=== PATIENT | male | born 1945 | race Two or more races ===

== ENCOUNTER 2017-05-18 14:09 | Observation (INO) | payer MEDICARE, OTHER ==
[~2017-05-18] VITALS: Ht 185.4 cm; Wt 101.2 kg
[2017-05-18 15:48] VITALS: BP 147/78; PULSE 70; RESP 23; O2SAT 96
[2017-05-18] MEDS ORDERED: Ondansetron 2 mg/mL 2 mL Inj IVPUSH PRN (16:20)
[2017-05-18] MEDS ORDERED: Alum-Mag Hydrox-Simeth 30 mL Suspension PO PRN (16:20)
[2017-05-18] MEDS ORDERED: Polyethylene Glycol (PEG) 17 Gm Powder PO PRN (16:20)
[2017-05-18] MEDS ORDERED: LIP40 PO (16:28)
[2017-05-18] MEDS ORDERED: HYDR25TA4 PO (16:28)
[2017-05-18] MEDS ORDERED: ASPI-973 PO (16:28)
[2017-05-18] MEDS ORDERED: ALPR1TAB2 PO (16:28)
[2017-05-18] MEDS ORDERED: LISI-567 PO (16:28)
[2017-05-18] MEDS ORDERED: LORA10CA PO (16:28)
[2017-05-18] MEDS ORDERED: Heparin 5,000 Unit/mL Inj SUBQ SCH (16:30)
--- NOTE | 2017-05-18 16:33 | PCM.HPMED ---
Subjective Date of Service May 18, 2017 Primary Provider: Admitting Physician: Bull Wei MD Primary Care Physician: Nopcp Attending Physician: Bull Wei MD Admit Status: Direct Admit, 23-Hour Observation, [facility] Telemetry Chief Complaint: Chest pain History of Present Illness: This is a pleasant 71-year-old woman who was golfing yesterday when he developed acute chest pain. He also developed a feeling of being lightheaded and had a lot of dyspepsia. He drove home and had ongoing feeling of chest pressure with some radiation to neck as well as I am going burping and feeling lightheaded. He called 911 and took 3 aspirin. Medics found him to be in atrial fibrillation with rapid ventricular response. He had no palpitations or fluttering. He denies a history of CAD, MO, chest pain at rest or with exertion , or leg swelling. No history of pleuritic chest pain. No hemoptysis. He denies a family history of CAD. He was initially admitted to [facility] At that point he was placed on a Cardizem drip. He apparently at some point had a spontaneous conversion to sinus rhythm today. He did have elevated troponin. [facility] did not have access to stress testing or echo. The requested transfer here for these services. He denies recent URI symptoms, he does have chronic allergies and allergic rhinitis. Review of Systems: He denies fevers or chills. No cough. No orthopnea. No blood per rectum or melena constipation. No difficulty urinating. All else reviewed and otherwise unremarkable except as noted in history of present illness. Home Medications Chlorothiazide 25 daily, lisinopril 20 daily, Lipitor 40 mg daily, Xanax 1 mg once a day, aspirin 81 mg daily, loratadine 10 mg daily PMH Essential hypertension Hyperlipidemia Allergic rhinitis Surgical History Left testicular operation when he was a child, possibly for a hydrocele. Left eye foreign body removal as a child. Family History No history of CAD Social History Occupation: Works as a camp Hx Alcohol Use: No Hx Substance Use: No Hx Tobacco Use: No Living Arrangement: with Family Exam Exam Oriented 3. No distress. Fluent speech. Normal affect. Normal skull. Normal nose and ears. Anicteric sclera, symmetric pupils Oropharynx is unremarkable, no facial droop. Neck is supple, normal thyroid. No adenopathy. Lungs are clear, normal effort rate. Heart is regular without murmur gallop or rub. Abdomen soft, nondistended or tender. Extremities are free of pedal edema. Good radial and pedal pulses. Skin is free of rash, lesions. No petechiae or ecchymosis. Joints are grossly normal. Cranial nerves are grossly normal. Motor strength is normal in all extremities. Normal muscular tone. Lab and Diagnostics Labs All initial studies pending Assessment & Plan 1. Paroxysmal atrial fibrillation with rapid ventricular response. This has resolved. The patient will be monitored on telemetry. We will check TSH. 2. Elevated troponin in context of tachycardia, present on admission and active. We will trend troponins. Anticipate 2-D echo and stress testing tomorrow. 3. Essential hypertension, present on admission and stable. Resume usual medications. 4. Hyperlipidemia, present on admission and stable. Resume usual medications. Patient has 4 resuscitation He is admitted observation status with an estimated length of stay of one night. Pain Evaluation: Adequate Pain Control Resuscitation Status: CPR: Attempt Resuscitation Time spent 40 minutes Bull Wei MD May 18, 2017 16:33
[2017-05-18 17:17] VITALS: PULSE 60
[2017-05-18] MEDS: Sodium Chloride LOK Flush 10 mL Syringe IVFLUSH SCH (17:24)
[2017-05-18] MEDS ORDERED: Heparin Protocol Boluses IVPUSH PRN (18:15)
[2017-05-18] MEDS ORDERED: Heparin 25K Unit/500mL 0.45 NS 25,000 UNIT in IV Premix 1 EACH IV SCH (18:15)
[2017-05-18] MEDS: MeTOProlol XL 25 mg ER24 Tablet PO SCH (18:42)
--- NOTE | 2017-05-18 19:06 | NUR ---
RAGHAV explained and signed. Copy of RAGHAV and Medicare self administered medication information given to pt.
--- NOTE | 2017-05-18 19:06 | CONS ---
[address] [address] CONSULTATION REPORT PATIENT: PHUONG KEITH : 1945 MR#: [id number] ADMIT: 05/18/2017 JOB ID: [id number] DATE OF SERVICE: 05/18/2017 REASON FOR CARDIOLOGY CONSULT: For the evaluation of atrial fibrillation and abnormal troponin. CHIEF COMPLAINT: Chest pain. Palpitations. PRESENT HISTORY: This 71-year-old, pleasant male who has a history of essential hypertension, hyperlipidemia, anxiety, allergic rhinitis, was playing golf yesterday. When he was trying to play hole number four, he developed retrosternal pressure-type discomfort which was pretty intense. It radiated to the left jaw. He felt palpitations. He felt that his heart was beating irregular. He went home and took three aspirin but did not feel better. Then, he got checked at the [facility] and found to be in atrial fibrillation with fast ventricular rate. Hence, he was taken to the [facility], where he got treated. He was started on Cardizem drip as well. At some point, he converted to sinus rhythm. His troponin was abnormal. His baseline EKG was abnormal. Hence, the patient was transferred to our facility for further cardiac workup. At present, he is lying down flat. He is not having any active chest pain or palpitation. The patient denies any previous history of myocardial infarction, rheumatic heart disease or congenital heart disease or DVT or pulmonary embolism or significant arrhythmias. The patient told me about 18 years ago he had cardiac workup which was due to the presence of a murmur. However, no significant abnormality was found. The patient denies any fever, cough expectoration, bleeding or stroke-like symptoms. Denies any known history of sleep apnea. However, he has some symptoms which suggest that he may have sleep apnea. No history of excessive alcohol abuse or caffeine intake or drug abuse or history of diabetes mellitus. No known family history of atrial fibrillation. PAST MEDICAL HISTORY: Positive for essential hypertension, hyperlipidemia, anxiety, allergic rhinitis. PAST SURGICAL HISTORY: Left eye foreign body removal as a child, left testicular operation for hydrocele. PAST SURGICAL HISTORY: As stated above. ALLERGIES: Denies any significant allergy. FAMILY HISTORY: No family history of CAD. SOCIAL HISTORY: Denies any excessive tobacco abuse or alcohol abuse. MEDICATIONS: At home, he was takin. Xanax 1 mg daily. 2. Lipitor 20 mg daily. 3. Hydrochlorothiazide 25 mg daily. 4. Lisinopril 20 mg daily. 5. Aspirin 81 mg daily. REVIEW OF SYSTEMS: Ten-point review of systems were obtained. They are negative except as stated above. PHYSICAL EXAMINATION: Blood pressure 147/78, heart rate 70, respiratory rate 23, oxygen saturation on room air 96%. HEENT: No significant anemia, jaundice. Neck: No apparent JVP or carotid bruit. Chest: No obvious crepitation, rhonchi. CVS: S1, S2 normal. No S3, no S4. I do not appreciate any significant murmur. Abdomen: Obese, no obvious pulsatile mass felt. No obvious hepatosplenomegaly. Extremities: No significant pedal edema. Vascular: No evidence of critical limb ischemia. 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 No obvious motor or sensory deficit. LABS: At [facility] yesterday revealed WBC 7.7, hemoglobin 14, platelets 265. Sodium 136, potassium 3.9, BUN 24, creatinine 1.1. Normal AST, ALT. Initial troponin was less than 0.04. Lipase 26. Troponin in our facility today, 0.57. EKG yesterday at 3:51 p.m. revealed atrial fibrillation with fast ventricular rate about 117, with diffuse T-wave inversion including anterior leads, as well as inferior leads and lateral leads. EKG in our facility reveals sinus rhythm with KS interval 212 msec, suggestive of first-degree AV block, diffuse T-wave inversion including anterior inferior leads as well as lateral leads. QTc 450 msec. There is early transition. ASSESSMENT AND PLAN: Abnormal troponin with chest pain suggestive of angina in the setting of atrial fibrillation with fast ventricular rate with underlying essential hypertension, hyperlipidemia. At present, patient is in sinus rhythm. He is not having any chest pain. Abnormal troponin could be due to demand ischemia. However, patient has risk factors for underlying coronary artery disease as well. I suspect that he may have sleep apnea which can trigger atrial fibrillation. At present, no obvious evidence of infection. No history of excessive alcohol intake or caffeine intake or other triggers for atrial fibrillation. The patient has diffuse T-wave inversion. which may be due to hypertensive heart disease. However, ischemia cannot be ruled out, especially global ischemia. At present, he appears compensated. He is not in heart failure. No evidence of critical limb ischemia. His CHADS2 vascular score is 2. Hence, he will need anticoagulation. I will start him on regular heparin. I will treat him for possible demand ischemia as well. Will continue aspirin, and start IV heparin as per cardiac protocol and will start beta lynn and continue high-intensity statin. Will get echocardiogram in the morning. If on echocardiogram there is no obvious wall motion abnormalities and LV function is preserved, then we will recommend perfusion study for CAD diagnosis and risk stratification. However, if 2D echo suggests LV dysfunction or focal wall motion abnormalities suggestive of coronary artery disease, then will recommend consideration of left heart catheterization. Discussed the plan with the patient. He agreed and concur. Benefits and risks of above-mentioned procedure discussed. Further plan will be based on the result of above-mentioned diagnostic tests. Thanks for the cardiology consult. Total time spent today reviewing his records from [facility] is about 70 minutes.
--- NOTE | 2017-05-18 19:32 | NUR ---
Admit from [facility] pt. brought from [facility] this afternoon; vss; A&Ox3; tele sinus 60-70's; denies cp or pressure. Admit/med rec completed. Pt. to have echocardiogram in AM; depending on results, per cert occupational therapy asst, pt. will either have stress test or heart cath. Heparin gtt initiated per cardiac protocol per md orders.
[2017-05-18 20:00] VITALS: PULSE 73
[2017-05-18 21:14] VITALS: BP 143/75; PULSE 59; RESP 18; O2SAT 96
[2017-05-18 23:04] VITALS: BP 131/71; PULSE 60; RESP 18; O2SAT 96
[2017-05-19] MEDS: Sodium Chloride LOK Flush 10 mL Syringe IVFLUSH SCH ×2 (02:09→07:31)
[2017-05-19 02:15] VITALS: BP 158/82; PULSE 78; RESP 18; O2SAT 97
--- NOTE | 2017-05-19 06:44 | NUR ---
cardiac/anxiety Pt denied chest pain through out shift. Awaiting stress test this AM and has been NPO since midnight. Pt exhibits signs of anxiety: restless in bed pt requires frequent reassurance.
[2017-05-19] MEDS: MeTOProlol XL 25 mg ER24 Tablet PO SCH ×2 (07:31→14:00)
[2017-05-19 07:41] VITALS: BP 158/80; PULSE 79; RESP 18; O2SAT 95
[2017-05-19] MEDS ORDERED: LORazepam 1 mg Tablet PO ONE (08:45)
--- NOTE | 2017-05-19 09:10 | PCM.PNMED ---
Subjective Date of Service May 19, 2017 Subjective Patient is done well overnight. He is somewhat anxious. Denies any palpitations, no recurrent atrial fibrillation. No chest pain, no dyspnea. He is hungry. No abdominal pain or nausea. No diarrhea. No problems with urination. No overnight events Exam Vital Signs Vital Sign - Last Date Time Temp Pulse Resp B/P Pulse Ox O2 Delivery O2 Flow Rate FiO2 05/19/17 07:41 36.8 79 18 158/80 95 Room Air Intake and Output 05/18/17 05/18/17 05/19/17 Cumulative From/Thru 15:00 23:00 07:00 05/18/17 16:08 - 05/19/17 05:52 Intake Total 400 ml 569 ml 969 ml Output Total 225 ml 500 ml 725 ml Balance 175 ml 69 ml 244 ml Intake Oral 400 ml 400 ml 800 ml IV Total 169 ml 169 ml Output Urine Total 225 ml 500 ml 725 ml # Bowel Movements 2 2 Exam Alert and oriented -3, no distress. Fluent speech Anicteric sclera. Lungs are clear with normal rate and effort Heart is regular without murmur gallop or rub Abdomen soft nontender, flat Extremities are free of edema. Skin is free of rash or lesions. IVs and Medications Medications Reviewed: Medications were reviewed in detail Assessment & Plan 1. Paroxysmal atrial fibrillation with rapid ventricular response. This has resolved. The patient continues to be in sinus rhythm. Echo this morning with a risk stratification started contingent on echo results. 2. Elevated troponin in context of tachycardia, present on admission and active. We will trend troponins, a.m. troponin is pending. We will discuss stress test versus angiogram after 2-D echo with cardiology. 3. Essential hypertension, present on admission and stable. Resume usual medications. This is stable. This is stable. 4. Hyperlipidemia, present on admission and stable. Resume usual medications. Patient is full resuscitation He is admitted observation status with an estimated length of stay of one night. Resuscitation Status: CPR: Attempt Resuscitation Bull Wei MD May 19, 2017 09:10
[2017-05-19 09:20] LABS: BASOPHILS % (AUTO) 0.6 % (0-3); EOSINOPHILS % (AUTO) 1.1 % (0-5); MONOCYTES % (AUTO) 9.8 % (4-12); Mean Corpuscular Hemoglobin 31.1 pg (27.0-35.0); Mean Corpuscular Volume 88.9 fL (81-100); NEUTROPHILS % (AUTO) 59.3 % (40-74); Platelet Count 267 bil/L (150-400)
[2017-05-19 10:49] VITALS: PULSE 73
--- NOTE | 2017-05-19 11:01 | DRSVH ---
[facility] [address] [place] [address] Echocardiogram Report Name: PHUONG KEITH te: 05/19/2017 Height: 73 in Hospital Exam Location: [facility] Weight: 223 lb Gender: Male BSA: 2.3 m2 : 1945 Age: 71 yrs BP: 158/80 mmHg Reason For Study: Chest pain Ordering Physician: HOSPITALIST SVerformed By: Yaron Mcgowan Referring Physician: ANNIKA RUIZ Interpretation Summary The left ventricle is normal in size. The left ventricle is hyperdynamic. There is mild concentric left ventricular hypertrophy. There is moderate proximal septal thickening noted. There is no echo evidence for significant left ventricular outflow tract obstruction. The ejection fraction is estimated to be 70-75%. The right ventricle is normal size. The right ventricular systolic function is normal. There is mild mitral regurgitation. Procedure: A two-dimensional transthoracic echocardiogram with color flow and Doppler was performed. The study quality was technically adequate. A contrast injection of Definity was performed to improve assessment of LV function. There is no prior echocardiogram noted for this patient. The patient was in normal sinus rhythm during the exam. Left Ventricle: The left ventricle is normal in size. There is mild concentric left ventricular hypertrophy. There is moderate proximal septal thickening noted. There is no echo evidence for significant left ventricular outflow tract obstruction. The ejection fraction is estimated to be 70-75%. The left ventricle is hyperdynamic. There are no focal wall motion abnormalities. E/A is normal. E/E' slightly elevated. Right Ventricle: The right ventricle is normal size. The right ventricular systolic function is normal. Atria: Both atria are normal in size. The interatrial septum is intact with no evidence for an atrial septal defect. Mitral Valve: There is mild mitral annular calcification. The mitral valve leaflets appear thickened, but open well. There is mild mitral regurgitation. Aortic Valve: The aortic valve is trileaflet. The aortic valve opens well. The aortic valve is slightly calcified. There is no aortic valve stenosis. No aortic regurgitation is present. Tricuspid Valve: The tricuspid valve is normal. Pulmonary artery pressures cannot be estimated because of the lack of a measurable TR jet velocity. There is trace tricuspid regurgitation. Pulmonic Valve: The pulmonic valve is not well seen, but is grossly normal. There is trace pulmonic regurgitation. Great Vessels: The aortic root is normal size. The ascending aorta is mildly enlarged. The pulmonary artery is normal size. The inferior vena cava was not well visualized. Pericardium/ Pleura There is no pericardial effusion. There is an anterior echo-free space consistent with a fat pad. There is no pleural effusion. MMode/2D Measurements & Calculations LVIDd: 4.2 cm RA long axis LVOT diam: 2.3 cm LVIDs: 2.4 cm LA A2 area: 19.2 cm Ao root diam FS: 42.4 % LA A4 area: 19.4 cm RA area EPSS: 0.00 cm LA length (vol) asc Aorta Diam IVSd: 1.3 cm : 15.1 cm LVPWd: 1.4 cm LA vol: 55.7 ml RA vol Ao Arch Diam (Prox LA vol index : 38.2 ml Trans): 3.1 cm RA : 24.7 ml/m2 : 17.0 mm2 LV rubio. diameter/BSA LV sys. diameter/BSA RVD1 (basal) TAPSE: 2.2 cm (cm/m^2): 1.9 (cm/m^2): 1.1 Doppler Measurements & Calculations Ao V2 max: 135.1 cm/secMV E max humberto MV E/A: 1.2 PA V2 max Ao max P.3 mmHg : 92.8 cm/sec Med Peak E' Humberto : 81.9 cm/sec Ao mean P.1 mmHg MV A max humberto PA mean PG LVOT Max Humberto : 79.0 cm/sec E/E' med: 21.5 : 1.5 mmHg : 118.8 cm/sec Lat Peak E' Humberto AVANI(I,D): 4.0 cm sev ratio: 1.0 E/E' lat: 12.4 E/e' average MV dec time: 0.17 sec Ao V2 mean LV V1 max PG PA V2 mean : 95.8 cm/sec : 58.4 cm/sec Ao V2 VTI: 27.2 cmLV V1 VTI: 27.3 cm PA pr(Accel) AVANI(V,D): 3.5 cm2 : 29.2 mmHg AVANI indexed to BSA (cm^2/m^2): 1.8 Reading Physician:SYD
[2017-05-19 11:03] LABS: TROPONIN T 0.029 ug/L (0.0-0.011)
--- NOTE | 2017-05-19 11:12 | NUR ---
Social Work: Initial Assessment Data: See initial assessment. Patient is a 71 year old male who was admitted on 05/18/17 for PAF & elevated Troponin per H&P. Patient's insurance is Medicare and [employer]. Patient's PCP is Dr. Cheng Juares. EMR reviewed. SW met with patient to discuss discharge planning. SW role explained. Patient informed SW that he lives in [place] with his . Patient considers his to be his main support person. Patient confirms that his is his DPOA and that AD have been completed. Patient states that he is I with all ADLs and care needs. Patient confirms that he does drive via POV. Patient denies any hx of home health services or SNF. Patient denies having snf care insurance but confirms having VA benefits. Upon discharge, patient states that his will transport him home. SW provided patient with a discharge planning checklist booklet and encouraged to call with any questions/concerns. Phone number provided. SW will continue to follow. Assessment: Patient will discharge home with spouse. Plan: Patient will discharge home with spouse when medically stable. Transportation will be provided by spouse via POV. SW will continue to follow for needs. TIAGO Amaya Addendum: 05/19/17 at 1123 by TOAN SANTOS Amended: Links added.
[2017-05-19 11:41] VITALS: BP 137/76; PULSE 78; RESP 20; O2SAT 96
--- NOTE | 2017-05-19 11:55 | NUR ---
anxiety, npo for stress test/cath pt. anxious this am regarding tests/diagnoses. MD aware; lorazepam 1mg po given this am per md orders. Pt. had echo this am; carpenter foreman called and ok'd stress test to be done today; message left with nuc med. Denies cp, pressure, or any fluttering/palpitations; tele remains sinus rhythm.
[2017-05-19 13:20] VITALS: BP 86/47; PULSE 82
[2017-05-19 13:55] VITALS: BP 137/80; PULSE 78; RESP 22; O2SAT 96
--- NOTE | 2017-05-19 14:36 | PCM.DIMED ---
Discharge Instructions Date of Service May 19, 2017 Dates of Hospitalization May 18, 2017 at 15:41 Discharge Diagnosis Discharge Diagnosis 1. Paroxysmal atrial fibrillation with rapid ventricular response. Resolved. 2. Elevated troponin in context of tachycardia, with normal stress test. 3. Essential hypertension, stable 4. Hyperlipidemia, stable Diet Discharge Diet: Heart Healthy Activity Discharge Activity: No restrictions Call your provider Call your provider for: Shortness of breath, Chest pain Patient Instructions Follow-up Provider: Cheng Juares MD Follow-up with PCP in: 1 week Provider: Harry Rodríguez MD Follow-up in: 6 weeks Bull Wei MD May 19, 2017 14:36
[2017-05-19] MEDS ORDERED: APIX5TAB PO (14:38)
[2017-05-19] MEDS ORDERED: METO25TA99 PO (14:38)
--- NOTE | 2017-05-19 15:23 | DRSVH ---
PROCEDURE: EITHER REST OR STRESS ONLY. Pharmacological stress myocardial perfusion SPECT with gated imaging and ejection fraction. RADIOPHARMACEUTICAL: 20.6 mCi of Tc-99m tetrofosmin intravenously at peak pharmacologic stress. INDICATIONS: CHEST PAIN. TECHNIQUE: Radiopharmaceutical was injected at peak stress test. SPECT images were obtained. SPECT myocardial perfusion images were displayed in short axis, horizontal long axis, and vertical long ax is views. Gated images were reviewed using [employer] software. COMPARISON: None. CARDIAC STRESS: A pharmacologic stress test was performed under the supervision of attending staff u sing an infusion of Lexiscan as per protocol. Hemodynamic Data: There is normal blood pressure and heart rate response to pharmacologic stress. Symptoms: The patient felt dyspnea, mild nausea and abdominal cramps during Lexiscan infusion. Aminophylline: No aminophylline was given. EKG: Baseline rhythm was sinus with diffuse T-wave inversions and slight ST depression with possible LVH. During stress, there was a little bit more pronouncement of the T-wave inversion and ST change s. There were no significant arrhythmias. FINDINGS: 1. Raw Data: There was increased subdiaphragmatic activity. 2. Left Ventricular Function: Stress LV ejection fraction was 95%. The LV appears to be hyperdynam ic. There is vigorous contraction of all the corbett. Stress LV end diastolic volume is 67 mL. 3. Myocardial Perfusion: The stress supine images revealed mild to moderate-size, mildly decreased perfusion of the base to mid inferior wall, which resolved completed during prone images; however, th e prone images developed new perfusion defect involving the base to mid inferolateral wall. IMPRESSION: I will call this study likely a normal myocardial perfusion study with evidence of shift ing tissue attenuation artifact. Stress supine images revealed mildly decreased perfusion of the bas e to mid inferior wall, which resolved completely during prone images; however, the prone images reve aled new base-to-mid inferolateral wall defect, which was not seen during stress supine. It suggests shifting tissue attenuation artifact. There are no obvious wall motion abnormalities; in fact, left ventricular function is hyperdynamic. There is vigorous contraction of the left ventricle. Most li chely the patient has hypertensive heart disease. As far as the perfusion scan is concerned, this is a low risk myocardial perfusion scan. Dictated by: Harry Rodríguez M.D. on 05/19/2017 at 14:23 Transcribed by: SEVEN on 05/19/2017 at 18:23 Approved by: Harry Rodríguez M.D. on 05/21/2017 at 16:43
--- NOTE | 2017-05-19 15:53 | PCM.DC.MED ---
Discharge Summary Date of Service May 19, 2017 Dates of Hospitalization Date of Hospital Admission May 18, 2017 at 15:41 Date of Discharge: May 19, 2017 Providers: Admitting Physician: Bull Ruiz MD Primary Care Physician: Cheng Juares MD Attending Physician: Bull Ruiz MD Diagnosis at Time of Discharge Diagnosis at Time of Discharge 1. Paroxysmal atrial fibrillation with rapid ventricular response. Resolved. 2. Elevated troponin in context of tachycardia, with normal stress test. 3. Essential hypertension, stable 4. Hyperlipidemia, stable Consultations Cardiology, Dr. Rodríguez Procedures ECG 12 Lead Normal sinus rhythm upon arrival. No ST segment changes. Cardiac Echo Impression Echocardiogram Report Name: PHUONG KEITH DStudy Da te: 05/19/2017 Height: 73 in Hospital Exam Location: [facility] Weight: 223 lb Gender: Male BSA: 2.3 m2 : 1945 Age: 71 yrs BP: 158/80 mmHg Reason For Study: Chest pain Ordering Physician: HOSPITALIST SVHPerformed By: Yaron Mcgowan Referring Physician: BULL RUIZ Interpretation Summary The left ventricle is normal in size. The left ventricle is hyperdynamic. There is mild concentric left ventricular hypertrophy. There is moderate proximal septal thickening noted. There is no echo evidence for significant left ventricular outflow tract obstruction. The ejection fraction is estimated to be 70-75%. The right ventricle is normal size. The right ventricular systolic function is normal. There is mild mitral regurgitati Invasive Procedures None Other Diagnostics Date of Service: 05/19/17 1009 Caution: Report not yet finalized and possibly incomplete! PROCEDURE: EITHER REST OR STRESS ONLY. Pharmacological stress myocardial perfusion SPECT with gated imaging and ejection fraction. RADIOPHARMACEUTICAL: 20.6 mCi of Tc-99m tetrofosmin intravenously at peak pharmacologic stress. INDICATIONS: CHEST PAIN. TECHNIQUE: Radiopharmaceutical was injected at peak stress test. SPECT images were obtained. SPECT myocardial perfusion images were displayed in short axis, horizontal long axis, and vertical long axis views. Gated images were reviewed using [employer] software. COMPARISON: None. CARDIAC STRESS: A pharmacologic stress test was performed under the supervision of attending staff using an infusion of Lexiscan as per protocol. Hemodynamic Data: There is normal blood pressure and heart rate response to pharmacologic stress. Symptoms: The patient felt dyspnea, mild nausea and abdominal cramps during Lexiscan infusion. Aminophylline: No aminophylline was given. EKG: Baseline rhythm was sinus with diffuse T-wave inversions and slight ST depression with possible LVH. During stress, there was a little bit more pronouncement of the T-wave inversion and ST changes. There were no significant arrhythmias. FINDINGS: 1. Raw Data: There was increased subdiaphragmatic activity. 2. Left Ventricular Function: Stress LV ejection fraction was 95%. The LV appears to be hyperdynamic. There is vigorous contraction of all the corbett. Stress LV end diastolic volume is 67 mL. 3. Myocardial Perfusion: The stress supine images revealed mild to moderate- size, mildly decreased perfusion of the base to mid inferior wall, which resolved completed during prone images; however, the prone images developed new perfusion defect involving the base to mid inferolateral wall. IMPRESSION: I will call this study likely a normal myocardial perfusion study with evidence of shifting tissue attenuation artifact. Stress supine images revealed mildly decreased perfusion of the base to mid inferior wall, which resolved completely during prone images; however, the prone images revealed new base-to-mid inferolateral wall defect, which was not seen during stress supine. It suggests shifting tissue attenuation artifact. There are no obvious wall motion abnormalities; in fact, left ventricular function is hyperdynamic. There is vigorous contraction of the left ventricle. Most likely the patient has hypertensive heart disease. As far as the perfusion scan is concerned, this is a low risk myocardial perfusion scan. Dictated by: Harry Rodríguez M.D. on 05/19/2017 at 14:23 Transcribed by: SEVEN on 05/19/2017 at 18:23 Brief History This is a pleasant 71-year-old woman who was golfing yesterday when he developed acute chest pain. He also developed a feeling of being lightheaded and had a lot of dyspepsia. He drove home and had ongoing feeling of chest pressure with some radiation to neck as well as I am going burping and feeling lightheaded. He called 911 and took 3 aspirin. Medics found him to be in atrial fibrillation with rapid ventricular response. He had no palpitations or fluttering. He denies a history of CAD, NV, chest pain at rest or with exertion , or leg swelling. No history of pleuritic chest pain. No hemoptysis. He denies a family history of CAD. He was initially admitted to [facility] At that point he was placed on a Cardizem drip. He apparently at some point had a spontaneous conversion to sinus rhythm today. He did have elevated troponin. [facility] did not have access to stress testing or echo. The requested transfer here for these services. He denies recent URI symptoms, he does have chronic allergies and allergic rhinitis. Hospital Course 1. Paroxysmal atrial fibrillation with rapid ventricular response. This has resolved. The patient continues to be in sinus rhythm. Echo this morning with a risk stratification started contingent on echo results. 2. Elevated troponin in context of tachycardia, present on admission and active. We will trend troponins, a.m. troponin is pending. We will discuss stress test versus angiogram after 2-D echo with cardiology. 3. Essential hypertension, present on admission and stable. Resume usual medications. This is stable. This is stable. 4. Hyperlipidemia, present on admission and stable. Resume usual medications. Patient is full resuscitation Hospital course. Patient was admitted after being transferred for evaluation of paroxysmal atrial fibrillation and mild elevation of troponin. The patient remained in normal sinus rhythm overnight here and was on metoprolol 25 mg daily. A 2-D echo as noted above is fairly unremarkable without wall motion abnormalities. The patient underwent a stress test which was essentially unremarkable. Consultation with cardiology with following recommendations. We will discharge home today on metoprolol twice a day 25 mg, and initiate L a course for a chads score of 2. Will stop aspirin and continue atorvastatin and lisinopril as he was taking before. Follow up with his primary care doctor Dr. Juares in one week and follow-up with cardiology, Dr. Rodríguez in 6-8 weeks. Exam Vital Signs (Last) Date Time Temp Pulse Resp B/P Pulse Ox O2 Delivery O2 Flow Rate FiO2 05/19/17 13:55 36.5 78 22 137/80 96 Room Air Exam Patient was seen and examined on the day of discharge. Test 05/18/17 16:54 05/19/17 08:15 Thyroid Stimulating Hormone (TSH) 1.030uIU/mL (0.450-4.500) White Blood Count 10.3th/mm3 (3.8-10.1) Red Blood Count 4.50mil/mm3 (4.40-5.80) Hemoglobin 14.0g/dL (13.8-17.2) Hematocrit 40.0% (41.0-50.0) Mean Corpuscular Volume 88.9fL (81-100) Mean Corpuscular Hemoglobin 31.1pg (27.0-35.0) Mean Corpuscular Hemoglobin Concent 35.0% (32.0-37.0) Red Cell Distribution Width 13.6% (12.3-15.4) Platelet Count 267bil/L (150-400) Neutrophils (%) (Auto) 59.3% (40-74) Lymphocytes (%) (Auto) 29.1% (14-46) Monocytes (%) (Auto) 9.8% (4-12) Eosinophils (%) (Auto) 1.1% (0-5) Basophils (%) (Auto) 0.6% (0-3) Activated Partial Thromboplast Time 97.3sec (22.8-33.0) Sodium Level 140mEq/L (134-144) Potassium Level 4.3mEq/L (3.5-5.2) Chloride Level 103mEq/L (97-108) Carbon Dioxide Level 21mmol/L (18-29) Blood Urea Nitrogen 15mg/dL (8-27) Creatinine 0.82mg/dL (0.76-1.27) Estimat Glomerular Filtration Rate 99mL/min (>59) Glucose Level 117mg/dL (60-99) Calcium Level 9.1mg/dL (8.5-10.1) Total Bilirubin 0.4mg/dL (0.0-1.2) Aspartate Amino Transf (AST/SGOT) 30U/L (0-50) Alanine Aminotransferase (ALT/SGPT) 27U/L (0-44) Alkaline Phosphatase 82U/L (25-160) Troponin T 0.029ug/L (0.0-0.011) Total Protein 6.7g/dL (6.4-8.4) Albumin 3.7g/dL (3.4-5.0) Triglycerides Level 68mg/dL (0-149) Cholesterol Level 192mg/dL (100-199) LDL Cholesterol, Calculated 119.400mg/dL (0-99) VLDL Cholesterol 13.600mg/dL HDL Cholesterol 59mg/dL (>39) Cholesterol/HDL Ratio 3.25 (0.0-4.4) Discharge Medications Discharge Medications Alprazolam (Xanax) 1 Mg Tablet 1 MG PO DAILY (Reported) Apixaban (Eliquis) 5 Mg Tablet 5 MG PO BID Prescribed by: BULL RUIZ MD Atorvastatin (Lipitor) 40 Mg Tablet 40 MG PO HS (Reported) Hydrochlorothiazide (Hydrochlorothiazide) 25 Mg Tablet 25 MG PO DAILY (Reported ) Lisinopril (Lisinopril) 20 Mg Tablet 20 MG PO DAILY (Reported) Loratadine (Claritin) 10 Mg Capsule 10 MG PO DAILY (Reported) Metoprolol Succinate ER (Metoprolol Succinate ER) 25 Mg Tab.er.24h 25 MG PO BID Prescribed by: BULL RUIZ MD Followup Plan Disposition: Home Discharge Diet: Heart Healthy Discharge Activity: No restrictions Follow-up Provider: Cheng Juares MD Follow-up with PCP in: 1 week Provider: Harry Rodríguez MD Follow-up in: 6 weeks Time spent 45 minutes Bull Ruiz MD May 19, 2017 15:53
--- NOTE | 2017-05-19 15:54 | NUR ---
Social Work: Discharge Data: EMR reviewed. Patient is on day 1 of hospitalization for PAF & elevated troponin per H&P. Patient discussed in morning rounds. Patient has been deemed medically stable for discharge today. Transportation will be provided by spouse. No needs are anticipated at this time. Assessment: Patient will discharge home with spouse. Plan: Patient will discharge home today. Spouse will provide transport. Patient has no additional needs at this time. TIAGO Amaya
--- NOTE | 2017-05-19 16:19 | PROG NOTE ---
[address] [address] PROGRESS NOTE PATIENT: PHUONG KEITH : 1945 MR#: [id number] ADMIT: 05/18/2017 JOB ID: [id number] DATE: 05/19/2017 SUBJECTIVE: The patient is sitting on a chair. Feeling better. No recurrence or palpitation or chest pain or worsening shortness of breath or PND, orthopnea, bleeding, or stroke-like symptoms. In summary, this 71-year-old, pleasant male who has a history of essential hypertension, hyperlipidemia, anxiety, suspicion for sleep apnea got admitted to [facility] because of chest discomfort, palpitation and found to be having atrial fibrillation with fast ventricular rate. His troponin was abnormal. He has baseline diffuse T-wave inversion. He was transferred to our facility for further evaluation. In the [facility], he got converted to sinus rhythm. Today, he underwent echocardiogram which revealed hyperdynamic left ventricle with LV ejection fraction 70% to 75% with mild concentric LVH, mild MR. E to E prime ratio was abnormal suggestive of diastolic dysfunction. The patient underwent pharmacological perfusion study which did not reveal any obvious ischemia or infarction pattern. LV function hyperdynamic. The patient was started on Eliquis for anticoagulation as his CHADS2-VASc score is at least 2. Most likely, the patient has hypertensive heart disease. OBJECTIVE: Blood pressure 137/80, heart rate 78, respiratory rate 20 to 22, oxygen saturation 96%. Neck: No apparent JVP. Chest: No obvious crepitation or rhonchi. CVS: S1, S2 normal. Clinically, no S3, no S4. No significant murmur. Abdomen: No obvious pulsatile mass. Extremities: No significant pedal edema. Vascular: No evidence of critical limb ischemia. CHEMISTRY QUALITY CONTROL TECHNICIAN: Alert, oriented to time, place, and person. Telemetry: Rhythm is sinus. LABORATORIES: Hemoglobin 14, hematocrit 40, platelets 267. WBC 10.3. Sodium 140, potassium 4.3, BUN 15, creatinine 0.82. Troponin T 0.057 and 0.029. Total cholesterol 192, LDL 119, HDL 59. TSH 1.03. Triglycerides 68. ASSESSMENT/PLAN: Abnormal troponin and chest pain suggestive of angina in the setting of atrial fibrillation with fast ventricular rate likely due to demand ischemia with underlying hypertension with hypertensive heart disease with hyperlipidemia. On 2D echo, the patient has hyperdynamic LV function. No significant wall motion abnormalities. On perfusion scan, there is no obvious ischemia infarction. His CHADS2 vascular score is 2. Hence, he will need anticoagulation. The patient is started on Eliquis 5 mg twice a day. Benefits and side effects discussed. The patient is on beta lynn and statin as well as LORENZO inhibitor along with diuretics. From Cardiology perspective, he can be discharged home. Preventive measures including weight loss discussed. Advised patient to see PCP regarding sleep apnea evaluation. He will be seen in Cardiology office in a couple of weeks. During this interim, if he develops any significant cardiovascular symptoms, I advised him to call us. At this point of time, cardiology service will sign off. The patient understood. All the questions were answered. TOTAL TIME TODAY: About 40 minutes.
--- NOTE | 2017-05-19 16:26 | NUR ---
Discharge pt. dc'd at 1625 this afternoon. VSS; A&Ox3; ambulating in room IND; steady on feet; denied dizziness, pain, sob or palpitations; tele had been sinus rhythm. Pt. received eloquis per md orders prior to dc. PIV dc'd; catheter intact. Reviewed discharge instructions and medications with patient; verbalized understanding. Carenotes provided regarding diagnoses and new medications. No questions about care. Pt. to make f/u appointments in AM; phone numbers provided; verbalized understanding. Escorted ambulatory with [employer] to private vehicle.
== END 2017-05-19 17:44 | disposition home or self-care (01) ==
LOC: INTOOBSV 15:41 → PCC 15:41
PROVIDERS: ADMIT Hospitalist; ATTEND Hospitalist
DX: I48.0 Paroxysmal atrial fibrillation (principal); R07.89 Other chest pain; R79.89 Other specified abnormal findings of blood chemistry; R00.0 Tachycardia, unspecified; I10 Essential (primary) hypertension; E78.5 Hyperlipidemia, unspecified; Z79.899 Other long term (current) drug therapy